=== PATIENT | female | born 1970 | race Caucasian/White ===

== ENCOUNTER 2017-05-30 19:50 | Emergency (ER) | payer OTHER ==
[~2017-05-30] VITALS: Ht 162.6 cm; Wt 45.4 kg
--- NOTE | ~2017-05-30 | EKG ---
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 : 1970 Requested By: Jh Mi Order Number: [id number] MD: Darryl French Measurements Intervals [place] Rate: 93 P: 40 ID: 146 QRS: 43 QRSD: 86 T: 31 QT: 360 QTc: 448 Interpretive Statements Sinus rhythm No significant abnormality Baseline wander in lead(s) V5 No previous ECG available for comparison Electronically Signed On 06-01-2017 7:35:51 [employer] by Darryl French [email or web address] <ELECTRONICALLY SIGNED> By: Darryl French MD, [facility] 06/01/17 [id number] Darryl French MD, FACC /EPI
--- NOTE | ~2017-05-30 | EKG ---
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
[2017-05-30 20:29] LABS: HEMATOCRIT 46.2 % (37.0-47.0); HEMOGLOBIN 16.1 gm/dL (12.0-15.0); MCH 32.4 pg (26.0-34.0); MCHC 34.8 g/dL (28.0-37.0); PLATELET COUNT 254 thou/uL (150-400); RBC 4.97 mil/uL (4.20-5.00); RDW 15.1 % (10.5-14.5); WBC 9.5 thou/uL (4.0-11.0)
[2017-05-30 20:30] LABS: MANUAL DIFF YES
[2017-05-30 20:39] LABS: ANION GAP 14 mmol/L (7-16); BUN 13 mg/dL (7-18); CHLORIDE 104 mmol/L (98-107); CO2 24 mmol/L (21-32); CREATININE 0.8 mg/dL (0.6-1.0); GLUCOSE 96 mg/dL (74-106); POTASSIUM 4.3 mmol/L (3.5-5.1); SODIUM 142 mmol/L (136-145)
[2017-05-30 20:47] LABS: URINE BILIRUBIN NEGATIVE (Negative); URINE BLOOD NEGATIVE (Negative); URINE COLOR YELLOW; URINE GLUCOSE-RANDOM* NEGATIVE (Negative); URINE KETONES NEGATIVE (Negative); URINE LEUKOCYTES-REFLEX NEGATIVE (Negative); URINE PROTEIN (DIPSTICK) NEGATIVE (Negative); URINE UROBILINOGEN 0.2 E.U./dl (0.2-1.0)
[2017-05-30 20:48] LABS: ACETAMINOPHEN 10 ug/mL (10-30); ALBUMIN 4.6 g/dL (3.4-5.0); ALKALINE PHOSPHATASE 71 U/L (46-116); SALICYLATE 3.9 mg/dL (2.8-20.0); SGOT 41 U/L (15-37); SGPT 33 U/L (30-65); TOTAL BILIRUBIN 0.4 mg/dL (<0.1-1.0); TOTAL PROTEIN 8.7 g/dL (6.4-8.2); TROPONIN-I < 0.04 ng/mL (<0.06)
[2017-05-30 20:55] LABS: AMP/METHAMP Negative (Negative); BARBITURATES Negative (Negative); BENZODIAZEPINES Negative (Negative); COCAINE Negative (Negative); METHADONE Negative (Negative); OPIATES Negative (Negative); PCP Negative (Negative)
[2017-05-30 21:27] LABS: ABSOLUTE NEUTROPHILS 4.7 thou/uL (1.4-8.2); TOTAL CELL COUNT 100
[2017-05-30 21:28] LABS: ANISOCYTOSIS 1+
[2017-05-31 06:53] VITALS: BP 125/75
== END 2017-05-31 06:54 | disposition home or self-care (01) ==
LOC: ER 19:50
PROVIDERS: Emergency Medicine
DX: F10.129 Alcohol abuse with intoxication, unspecified (principal); R45.851 Suicidal ideations; B85.0 Pediculosis due to Pediculus humanus capitis; Z88.5 Allergy status to narcotic agent